=== PATIENT | female | born 1975 | race Caucasian/White ===

== ENCOUNTER 2018-03-21 09:23 | Emergency (ER) ==
[2018-03-21 09:28] VITALS: BP 130/82; TEMP 98.8; BMI 29.2
[2018-03-21] MEDS ORDERED: NORCO 10-325 PO STA (10:47)
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
== END 2018-03-21 11:34 | disposition home or self-care (01) ==
LOC: ED 09:23
DX: V43.52XA Car driver injured in collision with other type car in traffic accident, initial encounter (principal); M54.2 Cervicalgia; M54.6 Pain in thoracic spine; S13.9XXA Sprain of joints and ligaments of unspecified parts of neck, initial encounter; S33.5XXA Sprain of ligaments of lumbar spine, initial encounter
CPT/HCPCS: 99283